=== PATIENT | male | born 1970 | race Hispanic/Latino ===

== ENCOUNTER → 2017-08-04 | Outpatient (CLI) | payer BC ==
--- NOTE | 2017-08-04 12:31 | Diagnostic Imaging Report ---
TECHNIQUE: Magnetic resonance imaging of the RIGHT KNEE was performed WITHOUT injected contrast. HISTORY: Medial meniscal tear, running, twisted, one and half years COMPARISON: None available. FINDINGS: LIGAMENTS AND TENDONS: ACL: Intact PCL: Intact Collateral ligaments: Intact Iliotibial band: Unremarkable Popliteal tendon: Intact Extensor mechanism: Intact JOINT: Menisci: Medial: Complex tearing of the body and posterior horn. Lateral: Mild discoid variant. Mild attenuation and fraying of the free margin of the posterior horn. Articular Cartilage: Medial Compartment: Low to intermediate grade erosion and fibrillation. Lateral Compartment: No focal defect. Patellofemoral Compartment: No focal defect. Joint Fluid: The amount of fluid within the joint is within physiologic limits. BONES: No focal or infiltrative bone marrow replacing abnormality. No acute fracture. Mild peripheral subchondral bone marrow edema of the medial tibial plateau and medial femoral condyle. SOFT TISSUES: Otherwise, unremarkable. IMPRESSION: 1. Mild degenerative changes of the medial compartment, including degenerative tearing of the medial meniscus along with mild peripheral reactive subchondral bone marrow edema of the medial tibial plateau and medial femoral condyle. 2. Mild discoid variant of the lateral meniscus with mild focal degenerative tearing of the free margin of the posterior horn. Signed by: Dr. Abebe Buck D.O., M.M.M. on 08/04/2017 12:27 PM
== END ==
LOC: MRI 10:00
PROVIDERS: ATTEND Specialist
DX: S83.241A Other tear of medial meniscus, current injury, right knee, initial encounter (principal)

== ENCOUNTER → 2017-08-18 | Day surgery (SDC) | payer BC ==
[~2017-08-18] MED LIST: BUPIVACAINE 0.5%/EPI 30 ML SDV INJ ONE; CEFAZOLIN SOD 2 GM/D5W 50ML 50 ML IV ONE; DEXAMETHASONE SOD PHOS INJ 4 MG/ML VIAL ONE; EPHEDRINE SULFATE INJ 50 MG/10 ML SYR ONE; FENTANYL CITRATE/PF 100MCG/2 ML INJ ONE; LIDOCAINE HCL 2% LOCAL INJ 5 ML SDV VIAL INJ ONE; MIDAZOLAM HCL 2 MG/2 ML VIAL ONE; ONDANSETRON HCL INJ 2 MG/ML VIAL ONE; PROPOFOL IV EMULSION 10 MG/ML 20 ML VIAL ONE; SEVOFLURANE INHAL SOLN 250 ML PEN BTL ONE
--- OUTSIDE RECORDS SUMMARY | 2017-08-18 10:21 | XMS REPORT ---
Author [facility] Address Unknown Phone Unavailable Care Team Providers Care Professor Of Communication Arts Name Role Phone ANNA CONTRERAS Unavailable Unavailable Problems This patient has no known problems. Allergies, Adverse Reactions, Alerts This patient has no known allergies or adverse reactions. Medications This patient has no known medications. Results Test Description Test Time Test Comments Text Results Atomic Results Result Comments MRI RIGHT KNEE WO [place] [address] Patient Name: ELENITA PUENTES MR # : [id number] : 1970 Age/Sex: 47/M Req #: [id number] Adm Physician: Ordered by: ANNA CONTRERAS MD Report #: [id number] Location: MRI Room/Bed: Procedure: [id number] MRI/MRI RIGHT KNEE WO Exam Date: 08/04/17 Exam Time : 1030 REPORT STATUS: Signed TECHNIQUE: Magnetic resonance imaging of the RIGHT KNEE was performed WITHOUT injected contrast. HISTORY: Medial meniscal tear, running, twisted, one and half years COMPARISON: None available. FINDINGS: LIGAMENTS AND TENDONS: ACL: Intact PCL: Intact Collateral ligaments: Intact Iliotibial band: Unremarkable Popliteal tendon: Intact Extensor mechanism: Intact JOINT: Menisci: Medial: Complex tearing of the body and posterior horn. Lateral: Mild discoid variant. Mild attenuation and fraying of the free margin of the posterior horn. Articular Cartilage: Medial Compartment: Low to intermediate grade erosion and fibrillation. Lateral Compartment: No focal defect. Patellofemoral Compartment: No focal defect. Joint Fluid: The amount of fluid within the joint is within physiologic limits. BONES: No focal or infiltrative bone marrow replacing abnormality. No acute fracture. Mild peripheral subchondral bone marrow edema of the medial tibial plateau and medial femoral condyle. SOFT TISSUES: Otherwise, unremarkable. IMPRESSION: 1. Mild degenerative changes of the medial compartment, including degenerative tearing of the medial meniscus along with mild peripheral reactive subchondral bone marrow edema of the medial tibial plateau and medial femoral condyle. 2. Mild discoid variant of the lateral meniscus with mild focal degenerative tearing of the free margin of the posterior horn. Signed by: Dr. Juan Buck D.O., M.M.M. on 08/04/2017 12: 27 PM Dictated By: JUAN BUCK DO 1227 Transcribed By: DELONTE on 08/04/177 COPY TO: ANNA CONTRERAS MD
--- NOTE | 2017-08-18 22:59 | Operative Report ---
DATE OF PROCEDURE: August 18, 2017 PREOPERATIVE DIAGNOSES 1. Right knee medial meniscus tear. 2. Right knee degenerative joint disease of the knee. POSTOPERATIVE DIAGNOSES 1. Right knee medial meniscus tear. 2. Right knee degenerative joint disease of the knee. PROCEDURES PERFORMED: Patient underwent. 1. Right knee examination under anesthesia. 2. Right knee arthroscopy. 3. Right knee partial medial meniscectomy. 4. Right knee chondroplasty of the patella, trochlea, medial femoral condyle, medial tibial plateau and lateral tibial plateau. [employer]: None. ANESTHESIA: General endotracheal intubation anesthesia. IV FLUIDS: As per the anesthesia record. BRIEF DESCRIPTION OF THE OPERATIVE PROCEDURE: Ms. Lopez was taken to the operating room, placed in supine position on the operating table. Following induction of general anesthesia as well as endotracheal intubation, the patient's right lower extremity was examined under anesthesia. He was found to have mild effusion with knee joint as well a ligamentously stable knee. The patient's lower extremity was prepped and draped in standard surgical fashion. A 2-portal technique was used to provide this patient arthroscopic evaluation of the knee joint. Examination of the suprapatellar pouch, medial and lateral gutters found no evidence of loose bodies. There was, however, evidence of chondromalacia of the patellar and trochlear surfaces. The scope was then advanced to the medial compartment. Examination of the medial compartment demonstrated torn and macerated medial meniscus. There was also chondromalacia of the articulating surfaces. A combination of biting forceps and a motorized shaver were used to resect the torn portion of the meniscus. Chondroplasties of the medial femoral condyle, medial plateau were performed at this time. The scope was then advanced to the intercondylar notch. The anterior cruciate ligament was found to be intact. Scope was then advanced to the lateral compartment. Examination of lateral compartment demonstrated chondromalacia of the lateral tibial plateau. Chondroplasty of the surface was undertaken. Scope was then advanced to the suprapatellar pouch and chondroplasty of the patella and trochlea performed. The knee was deflated with sterile normal saline. Each of the portal sites were closed using 4-0 nylon suture. Portal sites as well as knee itself were injected with 0.5% Marcaine with epinephrine. Sterile dressings were applied. The patient was awakened, taken to postanesthesia care unit in stable condition. Job#: [id number] GE
== END | disposition home or self-care (01) ==
LOC: OR 10:19
PROVIDERS: ATTEND Specialist
DX: S83.221A Peripheral tear of medial meniscus, current injury, right knee, initial encounter (principal); M17.11 Unilateral primary osteoarthritis, right knee; M22.41 Chondromalacia patellae, right knee; F17.210 Nicotine dependence, cigarettes, uncomplicated; X58.XXXA Exposure to other specified factors, initial encounter; Z01.810 Encounter for preprocedural cardiovascular examination
CPT/HCPCS: 29881; 93005; J1100; J2001; J2250; J2405